=== PATIENT | male | born 1985 | race Hispanic/Latino ===

== ENCOUNTER 2021-06-16 12:54 | Emergency (ER) | payer BC ==
[~2021-06-16] VITALS: Ht 175.3 cm; Wt 106.6 kg
[2021-06-16] MEDS ORDERED: PSEU120T62 PO (14:37)
[2021-06-16] MEDS ORDERED: AZIT250T9 PO (14:37)
[2021-06-16] MEDS ORDERED: BROM237S PO (14:37)
[2021-06-16] MEDS ORDERED: ACET-3194 PO (14:37)
[2021-06-16 15:13] VITALS: BP 135/93
== END 2021-06-16 15:16 | disposition home or self-care (01) ==
LOC: EDH 13:25
DX: Z20.822 Contact with and (suspected) exposure to COVID-19 (principal); R53.83 Other fatigue; R51.9 Headache, unspecified; J32.9 Chronic sinusitis, unspecified; Z79.899 Other long term (current) drug therapy
CPT/HCPCS: 87635; 87804 ×2; 99283; C9803

== ENCOUNTER 2022-05-25 09:58 | Emergency (ER) | payer BC, OTHER ==
[~2022-05-25] VITALS: Ht 175.3 cm; Wt 108.9 kg
[~2022-05-25 09:58] MED LIST: ACET-3194 PO; AZIT250T9 PO; BROM237S PO; PSEU120T62 PO
[2022-05-25 09:59] VITALS: BP 145/82
[2022-05-25 10:22] LABS: BASOPHILS % (AUTO) 0.6 % (0.0-5.0); EOSINOPHILS % (AUTO) 1.2 % (0.0-8.0); HEMATOCRIT 43.8 % (42-54); LYMPHOCYTES % (AUTO) 23.3 % (21.0-51.0); MEAN CORPUSCULAR HEMOGLOBIN 29.6 pg (27.0-33.0); MEAN CORPUSCULAR VOLUME 86.9 fL (79-99); MONOCYTES % (AUTO) 4.7 % (3.0-13.0); NEUTROPHILS % (AUTO) 69.8 % (40.0-77.0); PLATELET COUNT (AUTO) 278 K/uL (130-400); RED BLOOD CELL COUNT(AUTO) 5.04 MIL/uL (4.50-6.20); RED CELL DISTRIBUTION WIDTH 12.4 % (11.0-15.5); WHITE BLOOD COUNT (AUTO) 8.9 K/uL (4.8-10.8)
[2022-05-25 10:29] LABS: CREATININE 0.9 mg/dL (0.5-1.5); POTASSIUM 3.9 mmol/L (3.5-5.1)
[2022-05-25 10:34] LABS: ALBUMIN 3.9 g/dL (3.5-5.0); TOTAL PROTEIN, SERUM 7.3 g/dL (6.0-8.3)
[2022-05-25 11:42] LABS: APPEARANCE,URINE TURBID (CLEAR); BILIRUBIN,URINE NEGATIVE (NEGATIVE); COLOR,URINE LIGHT-ORANGE (YELLOW); GLUCOSE, URINE (UA) NEGATIVE (NEGATIVE); KETONES,URINE NEGATIVE (NEGATIVE); LEUKOCYTE ESTERASE ,URINE NEGATIVE Leu/uL (NEGATIVE); NITRATE,URINE NEGATIVE (NEGATIVE); OCCULT BLOOD,URINE LARGE (NEGATIVE); PH,URINE 5.5 (5.0-8.0); PROTEIN,URINE 50 mg/dL (NEGATIVE); UROBILINOGEN,URINE 0.2 mg/dL (0.2-1.0)
[2022-05-25 11:47] LABS: BACTERIA,URINE FEW /HPF (None Seen); MUCUS,URINE FEW LPF (None Seen); RBC,URINE TNTC /HPF (0-1)
[2022-05-25] MEDS ORDERED: KETOROLAC 60 MG VIAL (30MG/ML) IM ONE (12:30)
[2022-05-25] MEDS ORDERED: TAMS-1 PO (14:17)
[2022-05-25] MEDS ORDERED: IBUP-2070 PO (14:17)
== END 2022-05-25 14:51 | disposition home or self-care (01) ==
LOC: EDH 09:58
DX: N20.0 Calculus of kidney (principal); N20.9 Urinary calculus, unspecified
CPT/HCPCS: 99284; 74176; 80053; 85025; 81001; 36415; 96372; J1885

== ENCOUNTER 2022-09-16 11:54 | Emergency (ER) | payer OTHER ==
[~2022-09-16] VITALS: Ht 175.3 cm; Wt 108.9 kg
[~2022-09-16 11:54] MED LIST changes: +IBUP-2070 PO; +TAMS-1 PO
[2022-09-16] MEDS ORDERED: KETOROLAC 30MG VIAL (30MG/ML) IM ONE (12:30)
[2022-09-16] MEDS ORDERED: PENICILLIN G BENZATHINE LA 1.2 MILUNITS/2 ML SYG IM ONE (12:30)
[2022-09-16 13:30] VITALS: BP 126/95
== END 2022-09-16 13:30 | disposition home or self-care (01) ==
LOC: EDH 11:54
DX: J02.9 Acute pharyngitis, unspecified (principal); R13.10 Dysphagia, unspecified; Z20.822 Contact with and (suspected) exposure to COVID-19; Z79.899 Other long term (current) drug therapy
CPT/HCPCS: 99284; 87635; 87880; 87804 ×2; 96372 ×2; J0561; C9803; J1885